=== PATIENT | male | born 2000 | race Caucasian/White ===

== ENCOUNTER 2022-12-11 21:21 | Emergency (ER) | payer OTHER, SELFPAY ==
[2022-12-11 21:24] VITALS: BP 142/95; PULSE 85; RESP 16; TEMP 36.6; O2SAT 99; BMI 26.4
--- NOTE | 2022-12-11 21:27 | DI.RAD.S_ITS ---
PROCEDURE: XR TOE RT MIN 2V INDICATIONS: bruising swelling, after injury TECHNIQUE: AP view of the foot and 2 additional views of the 3rd toe acquired. COMPARISON: None. FINDINGS: Bones: There is a mildly displaced dorsal avulsion fracture of the base of the 3rd distal phalanx. No dislocation. Soft tissues: No suspicious soft tissue densities. IMPRESSION: 1. Mildly displaced dorsal avulsion fracture of the base of the 3rd distal phalanx. Dictated by: Marko Woody M.D. on 12/11/2022 at 22:55 Approved by: Marko Woody M.D. on 12/11/2022 at 23:09
--- NOTE | 2022-12-11 23:53 | ED_ITS ---
HPI - Extremity Injury (Lower) General Chief Complaint: Extremity Injury, Lower Stated Complaint: right foot injury Time Seen by Provider: 12/11/22 23:53 Source: patient Mode of arrival: Ambulatory History of Present Illness HPI Narrative: Patient is a healthy 22-year-old male who presents with right middle toe pain. He reports that he kicked a rock really hard. He is able to ambulate. 3rd middle toe has a bruise. No other injury Related Data Allergies Allergy/AdvReac Type Severity Reaction Status Date / Time No Known Drug Allergies Allergy Verified 12/11/22 21:24 Review of Systems Review of Systems ROS Unobtainable: All systems reviewed & are unremarkable except as noted in HPI and below Patient History Social History Smoking Status: Never smoker Smoking Status: Never smoker Substance Use Type: does not use Exam Initial Vital Signs Initial Vital Signs: Vital Signs Temperature 97.9 F 12/11/22 21:24 Pulse Rate 85 12/11/22 21:24 Respiratory Rate 16 12/11/22 21:24 Blood Pressure 142/95 H 12/11/22 21:24 Pulse Oximetry 99 12/11/22 21:24 Oxygen Delivery Method Room Air 12/11/22 21:24 GENERAL: Well-appearing, well-nourished and in no acute distress. CARDIOVASCULAR: peripheral pulses in tact, cap refill <2 sec RESPIRATORY: No respiratory distress, speaks in full sentences without difficulty EXTREMITIES: Normal range of motion, no clubbing or edema. Neurovascularly intact Right middle toe distal tip contusion distal pedal pulse intact NEUROLOGICAL: Cranial nerves II through XII grossly intact. Normal gait and speech. SKIN: Warm, dry, no petechiae, no rashes or lesions. Course Orders Ordered: ED Orders 12/11/22 21:27 XR toe RT min 2V Stat Vital Signs Vital signs: Vital Signs - 8 hr 12/11/22 21:24 12/12/22 00:29 Temperature 97.9 F Pulse Rate 85 73 Respiratory Rate 16 16 Blood Pressure 142/95 H 126/72 Pulse Oximetry 99 98 Oxygen Delivery Method Room Air Room Air MDM - Extremity Injury (Lower) Imaging Data Extremity x-ray #1: Radiologist's Impression: PROCEDURE:? XR TOE RT MIN 2V ? INDICATIONS:? bruising swelling, after injury ? TECHNIQUE:? AP view of the foot and 2 additional views of the 3rd toe acquired.? ? COMPARISON:? None. ? FINDINGS:? ? Bones:? There is a mildly displaced dorsal avulsion fracture of the base of the 3rd distal phalanx.? No dislocation.? ? Soft tissues:? No suspicious soft tissue densities.? ? IMPRESSION:? ? 1.? Mildly displaced dorsal avulsion fracture of the base of the 3rd distal phalanx. ? ? Dictated by: Marko Woody M.D. on 12/11/2022 at 22:55 ?? MDM Narrative Medical decision making narrative: Patient 22-year-old female who presents with right 3rd toe pain and injury. Distal tip is fractured. There is a small contusion on the distal tip as well. Recommended diamante taping and supportive shoes. He is offered an orthopedic shoe which he would like. No need for any further imaging. This will heal with supportive care. Discharge Plan Departure Patient Disposition: Home Clinical Impression: Closed fracture of phalanx of right third toe Instructions: DI for Toe Fracture Activity Restrictions/Additional Instructions: *You have been diagnosed with right 3rd toe distal fracture *What to do: At this time wherever supportive shoes elevate and ice. You can wear the orthopedic shoe as needed for comfort but any supportive shoe. He may also take the toe to the 2nd toe to help provide support. *Continue to take medications as directed Motrin 600 mg every 6 hours if needed for [id number] pain Tylenol 1000 mg every 6 hours if needed for [id number] pain *Follow up with your primary care provider in 2-3 days or call [phone] Please PCM for full physical activity limitations *Return to ER if you should have increasing pain swelling or any new, worsening or concerning symptoms Referrals: [facility] [Provider Group] Stand Alone Forms: Patient Portal/API
[2022-12-12 00:29] VITALS: BP 126/72; PULSE 73; RESP 16; O2SAT 98
== END 2022-12-12 00:29 | disposition home or self-care (01) ==
PROVIDERS: Emergency Provider Emergency Medicine
DX: S92.511A Displaced fracture of proximal phalanx of right lesser toe(s), initial encounter for closed fracture (principal); W22.09XA Striking against other stationary object, initial encounter
CPT/HCPCS: 73660; 99281; 99282